=== PATIENT | female | born 2000 | race Caucasian/White ===

== ENCOUNTER 2018-01-26 19:55 | Inpatient (IN) | payer MEDICAID ==
[~2018-01-26] VITALS: Ht 162.6 cm; Wt 101.6 kg
[2018-01-26] MEDS ORDERED: PREN-546 PO (20:50)
== END 2018-01-26 20:35 | disposition home or self-care (01) | DRG 566 ==
LOC: MLD 19:55
PROVIDERS: ADMIT Obstetrics & Gynecology; ATTEND Obstetrics & Gynecology
DX: O26.899 Other specified pregnancy related conditions, unspecified trimester (principal); R10.9 Unspecified abdominal pain; Z3A.00 Weeks of gestation of pregnancy not specified